=== PATIENT | male | born 1970 | race Caucasian/White ===

== ENCOUNTER 2025-02-22 11:52 | Emergency (ER) | payer MEDICAID ==
[~2025-02-22] VITALS: Ht 188 cm; Wt 108.9 kg
[2025-02-22] MEDS ORDERED: ACETAMINOPHEN ES 500 MG TABLET ONE (12:19)
[2025-02-22] MEDS: ACETAMINOPHEN ES 500 MG TABLET PO ONE (12:25)
[2025-02-22 14:36] VITALS: BP 140/80; TEMP 98.2; O2SAT 99
== END 2025-02-22 14:36 | disposition home or self-care (01) ==
LOC: ER 11:58
DX: S13.4XXA Sprain of ligaments of cervical spine, initial encounter (principal); S40.012A Contusion of left shoulder, initial encounter; S09.90XA Unspecified injury of head, initial encounter; R51.9 Headache, unspecified; V89.2XXA Person injured in unspecified motor-vehicle accident, traffic, initial encounter; Y93.89 Activity, other specified; Y92.410 Unspecified street and highway as the place of occurrence of the external cause; Y99.9 Unspecified external cause status
CPT/HCPCS: 70450-TC; 73030-TC